=== PATIENT | male | born 1965 | race Caucasian/White ===

== ENCOUNTER 2023-07-06 13:07 | Emergency (ER) | payer OTHER, SELFPAY ==
[2023-07-06 13:14] VITALS: BP 169/107
[2023-07-06 13:55] LABS: % Immature Granulocytes 0.3 % (0-0.5); % Lymphocytes 8.8 % (20.5-51.1); % Monocytes 2.2 % (1.7-9.3); % Neutrophils 88.7 % (42.2-75.2); Absolute Lymphocytes 0.6 10^3/uL (1.2-3.4); Absolute Monocytes 0.1 10^3/uL (0.1-0.6); Absolute Neutrophils 5.6 10^3/uL (1.4-6.5); Hematocrit 48.8 % (39.0-52.0); Hemoglobin 17.8 g/dL (13.0-18.0); Mean Corp Hgb Conc. 36.5 g/dL (33.0-37.0); Mean Corpuscular Hgb 32.5 pg (27.0-31.0); Mean Corpuscular Volume 89.1 fL (80.0-94.0); Mean Platelet Volume 9.7 fL (7.4-10.4); Nucleated Red Blood Cells % 0 % (-); Platelet Count 311 10^3/uL (130-400); Red Blood Cell Count 5.48 10^6/uL (4.70-6.10); Red Cell Dist. Width 12.4 % (11.5-14.5); White Blood Cell Count 6.3 10^3/uL (4.8-10.8)
[2023-07-06 14:17] LABS: ALT (SGPT) 41 U/L (0-50); AST (SGOT) 31 U/L (17-59); Albumin 4.6 g/dl (3.5-5.0); Alkaline Phosphatase 41 U/L (38-126); Blood Urea Nitrogen 15 mg/dl (9-20); Carbon Dioxide 28 mmol/L (22-30); Chloride 100 mmol/L (98-107); Glucose 142 mg/dl (70-99); Potassium 4.6 mmol/L (3.5-5.1); Sodium 139 mmol/L (135-145); Total Bilirubin 0.9 mg/dl (0.2-1.3); Total Protein 8.3 g/dl (6.3-8.2); eGFR > 60.00
--- NOTE | 2023-07-06 14:30 | ED.GENMED ---
History of Present Illness
General
Chief Complaint: Back Pain
Time Seen by Provider: 07/06/23 14:08
Travel History
Have you had any contact with someone who has COVID-19?: No
Do you have any symptoms of coronavirus? Fever > 100 degrees, chills, cough, shortness of breath, sore throat, loss of taste or smell, muscle aches, or headache?: No
History of Present Illness
History of Present Illness:
58-year-old male presents to the emergency department for evaluation of right lower back pain rating to the right groin over the past 2 to 3 days but acutely worse this morning. Pain is worse whenever he attempts to ambulate or bend forward.
Denies any lower extremity paresthesias or loss of urinary continence. No fevers or chills. He does note intermittent epigastric discomfort over the past month but this is not consistent currently. Took ibuprofen this morning without significant
relief of pain.
Past History
Past History
ED Past Medical History: GERD
ED Past Surgical History: None
Social History
Tobacco: Non-smoker
Alcohol: None
Personal: Single
Living: alone
Employment: Employed (self employed)
Family History
Family History: Negative Diabetes or CAD
Review of Systems
Review of Systems
Allergies reviewed?: Yes
All Other Systems: ROS reviewed and negative except as documented in HPI and ROS
Phy Exam
Physical Exam
Physical Exam:
GEN: Well appearing, NAD, WDWN
HEENT: Oral mucosa moist, no scleral icterus
Cardiac: Regular rate
Lung: No respiratory distress, no tachypnea
MSK: No gross deformity or injuries. No reproducible lumbar spine tenderness. Negative straight leg raise test on the right.
Skin: Good color, no pallor or jaundice, no rashes
Neuro: AO x3, moves all extremities freely. Bilateral lower extremity strength is 5 out of 5 in all tineo of flexion and extension and symmetric. Sensation is normal throughout all tineo lower extremities. Patellar reflexes 2+ bilaterally
Psych: Calm, cooperative
Course
Orders/Labs/Results
Orders:
Orders
07/06/23 13:15
Electrocardiogram (*1) Urgent
Reason for Study: Chest Pain
EKG- Treatment ONCE
07/06/23 13:33
Complete Blood Count/With Diff Urgent
Comprehensive Metabolic Panel Urgent
07/06/23 14:32
Acetaminophen [Tylenol] 1,000 mg PO NOW STA
Diazepam [Valium] 5 mg PO NOW STA
Ketorolac [Toradol] 30 mg IM NOW STA
Lidocaine [Lidocaine 4% Patch] 1 patch TOPICAL NOW STA
07/06/23 15:44
CT Abd/pel Without Iv Or Oral Urgent
Comment:
Reason For Exam: R flank pain
07/06/23 17:45
Urinalysis Reflex To Culture Urgent
Date Specimen was Collected: 07/06/23
Time Specimen was Collected: 17:33
Abnormal Lab Results
07/06/23
13:33
MCH 32.5 H pg
(27.0-31.0)
Absolute Lymphs (auto) 0.6 L 10^3/uL
(1.2-3.4)
Neutrophils % 88.7 H %
(42.2-75.2)
Lymphocytes % 8.8 L %
(20.5-51.1)
Glucose 142 H mg/dl
(70-99)
Total Protein 8.3 H g/dl
(6.3-8.2)
07/06/23 13:33
07/06/23 13:33
Vital Signs
Initial and Last Documented VS:
Initial Vital Signs
Temp Pulse Resp BP Pulse Ox
98.3 F 82 18 169/107 98
07/06/23 13:14 07/06/23 13:14 07/06/23 13:14 07/06/23 13:14 07/06/23 13:14
Last Documented Vital Signs
Temp Pulse Resp BP Pulse Ox
98.3 F 87 16 151/88 97
07/06/23 13:14 07/06/23 18:04 07/06/23 18:04 07/06/23 15:42 07/06/23 18:04
MDM/Problems Addressed
MDM/Problems Addressed:
After initial round of medications the patient's pain was not significantly changed, given the radiation from flank to groin we opted to obtain a CT scan to rule out ureterolithiasis. Imaging did show the changes of the bladder wall of uncertain
significance, his urinalysis is bland thus I do not suspect urinary tract infection. I encouraged him to discuss this finding with his primary care physician as he may require urologic follow-up for direct visualization to rule out malignancy
however the lack of hematuria is certainly reassuring against this. Back pain is likely mechanical, no emergent red flag symptoms warranting urgent MRI. Will prescribe steroids and muscle relaxants for supportive care
*Critical Care Note
Total Time (30-74mins, 75-104mins- exclusive of procedures): Not Applicable
ED Attending Note
-
Portions of this chart may have been created with voice recognition software.� Occasional wrong word or��sound alike� substitutions may have occurred due to the inherent limitations of voice recognition software.
Discharge Plan
Departure
Patient Disposition: Home (Routine Discharge)
Date of Disposition: 07/06/23
Time of Disposition: 17:48
Patient with high blood pressure during this ER visit?: No
Discharge Problem:
Lumbar radiculopathy, acute
Instructions: Radiculopathy (DC)
Prescriptions:
New
methylprednisolone [Medrol (Jay)] 4 mg tablets,dose pack
See Rx Instructions .ROUTE .COMPLEX Qty: 21 0RF
Rx Instructions:
orally per package directions
methocarbamol 750 mg tablet
750 - 1,500 mg PO TID PRN (Reason: pain) Qty: 20 0RF
No Action
albuterol sulfate 1 PUFF HFA aerosol inhaler
2 puff inhalation R Q4HPRN PRN (Reason: shortness of breath) Qty: 1 0RF
ibuprofen [Advil] 200 MG tablet
400 mg PO Q4HPRN PRN (Reason: pain, fever)
Nyquil
30 ml PO TIDPRN PRN (Reason: cough,cold symptoms)
famotidine 20 MG tablet
20 mg PO DAILY
ascorbic acid (vitamin C) [Vitamin C] 500 MG tablet
1,000 mg PO BID
cholecalciferol (vitamin D3) 1,000 UNITS tablet
2,000 units PO DAILY
acetaminophen 325 MG tablet
650 mg PO Q4HPRN PRN (Reason: fever >/= 100.4F, CANO,mild pain) 0RF
guaifenesin [Mucus Relief ER] 600 MG tablet extended release 12hr
600 mg PO Q12 0RF
Referrals:
Paresh Werner MD [Family Provider] -
Interventions
Interventions:
*Risk Screen - Suicide Last Done: 07/06/23 13:14
*General Assessment Last Done: 07/06/23 14:43
*Neglect/Abuse Screening Last Done: 07/06/23 13:14
ED- Fall Risk Assessment Last Done: 07/06/23 14:43
*ED COVID-19 Vaccine History Last Done: 07/06/23 13:14
*Nursing Disposition Last Done: 07/06/23 18:04
ED-Musculoskeletal Assessment Last Done: 07/06/23 14:43
Discharge Date and Time
Discharge Date/Time: 07/06/23 18:06
[2023-07-06] MEDS: TYLENOL 1000 MG PO (14:45)
[2023-07-06] MEDS: TORADOL 30 MG IM (14:46)
[2023-07-06] MEDS: LIDOCAINE 4% PATCH 1 PATCH TOPICAL (14:47)
[2023-07-06 15:42] VITALS: BP 151/88
[2023-07-06] MEDS: VALIUM 5 MG PO (16:42)
[2023-07-06 17:53] LABS: Urine Albumin Negative (Neg - Trace); Urine Bilirubin Negative (Negative); Urine Character Clear (Clear); Urine Color Yellow; Urine Glucose Negative (Negative); Urine Ketone Negative (Negative); Urine Leukocyte Negative (Negative); Urine Nitrite Negative (Negative); Urine Occult Blood Negative (Negative); Urine Specific Gravity 1.005 (<1.030); Urine Urobilinogen Negative (Neg - 1+); Urine pH 6.5 (5.0-9.0)
== END 2023-07-06 18:06 | disposition home or self-care (01) ==
LOC: EMR 13:07
PROVIDERS: Emergency Medicine; Physician Assistant; EMERGENCY PHYSICIAN Emergency Medicine; FAMILY PHYSICIAN Family Medicine
DX: M51.16 Intervertebral disc disorders with radiculopathy, lumbar region (principal); K21.9 Gastro-esophageal reflux disease without esophagitis
CPT/HCPCS: 99284; 96372; 74176; 80053; 81003; 85025; 93005

== ENCOUNTER 2025-05-06 23:29 | Emergency (ER) | payer OTHER, SELFPAY ==
[2025-05-06 23:41] VITALS: BP 171/98
--- NOTE | 2025-05-06 23:54 | ED.GENMED ---
History of Present Illness
<Alecia Hester PA-C - Last Filed: 05/07/25 04:07>
General
Chief Complaint: Chest Pain
Source: patient
Exam Limitations: none
Time Seen by Provider: 05/06/25 23:53
Nursing documentation reviewed up to this point in time: agreed with
History of Present Illness
History of Present Illness:
Note:
CHIEF COMPLAINT(S)
Chest pain with possible reflux symptoms.
HISTORY OF PRESENT ILLNESS
The patient is a 60-year-old male with pmh of GERD, renal stones, who presented with complaints of chest pain and epigastric pain that have persisted intermittently over the past few days. He describes the pain as 'light' initially but remarks that
it escalated to severe discomfort earlier in the evening after consumption of Coca-Cola, mashed potatoes, spring beans, and grain muffins. He reports a history of similar symptoms two years prior that lasted about twelve hours without medical
intervention. The current pain is located in the chest, with radiation to both sides of the stomach and described as a 'hardcore pain' for approximately two and a half to three hours.
He attempted self-medication with an acid check pilot believed to contain cimetidine and 500 mg of acetaminophen, which provided some relief. The patient has a history of gastroesophageal reflux disease (GERD) and suspects the current symptoms may be
related. However, he noted increased pain severity upon physical exertion and when lying down. He denies any burning sensation in the throat, shortness of breath, numbness, or tingling at this time.
FAMILY HISTORY
Family cardiac history is unknown as the patient is unsure.
PAST MEDICAL AND SURGICAL HISTORY
The patient has been diagnosed with kidney stones in the past and experiences gastroesophageal reflux disease. He states he had his blood work done recently, noting mild elevation in cholesterol. He has not had his gallbladder removed.
MEDICATIONS
Occasional use of an acid check pilot, believed to contain cimetidine, and acetaminophen for symptomatic relief.
PHYSICAL EXAM
General: Well appearing, in no acute distress.
Skin: Warm, dry.
Head: Normocephalic, atraumatic.
Neck: Supple, trachea midline.
Eyes, Ears, Nose, Mouth and Throat: Oral mucosa moist.
Cardiovascular: Regular rate and rhythm, no murmurs. No tenderness to palpation of the external chest pain. Normal peripheral perfusion, No edema.
Respiratory: Respirations are non-labored. No wheezes, rales, or rhonchi.
Gastrointestinal: Abdomen nondistended, mild tenderness in epigastrium and LUQ noted without significant guarding or rebound.
Back: Normal range of motion, Normal alignment.
Musculoskeletal: Normal range of motion, normal strength.
Neurological: CN II-XII intact. Alert and oriented to person, place, time, and situation, No focal neurological deficit observed.
Psychiatric: Cooperative, appropriate mood & affect.
PROBLEM LIST
Acute:
- Chest pain with suspected reflux component
- Intermittent severe epigastric and chest discomfort
Chronic:
- Gastroesophageal reflux disease (GERD)
- History of kidney stones
PLAN
- Conduct an Electrocardiogram (EKG) to rule out cardiac involvement, troponin.
- Recommend an ultrasound to evaluate gallbladder pathology.
- Administer a Gastrointestinal (GI) cocktail to alleviate symptomatic esophageal discomfort.
- Administer intravenous Pantoprazole (Protonix) to reduce gastric acid secretion.
- Investigate potential causes for pain, including cardiac, gallbladder, and pancreatic issues.
DIFFERENTIAL DIAGNOSIS
The Differential Diagnosis includes, in no particular order and is not limited to:
- Gastroesophageal reflux disease (GERD)
- Cardiac ischemia or myocardial infarction
- Cholecystitis
- Pancreatitis
- Peptic ulcer disease
- Esophageal spasm
- Angina pectoris
- Musculoskeletal chest wall pain
- Gastroesophageal reflux-induced esophagitis
- Biliary colic
CHART REVIEW
Reviewed ER physician documentation from patient seen for lumbar radiculopathy
Reviewed discharge summary from 05/21/21 patient seen for COVID pneumonia
UPDATE
Patient did note improvement with GI cocktail but than symptoms resolved
MDM/DISPOSITION
The patient is a 60-year-old male with pmh of GERD, renal stones, who presented with complaints of chest pain and epigastric pain that have persisted intermittently over the past few days. He describes the pain as 'light' initially but remarks that
it escalated to severe discomfort earlier in the evening after consumption of Coca-Cola, mashed potatoes, spring beans, and grain muffins. He has no cardiac hx. On exam, his vitals are stable, he has no chest discomfort to palpation, heart rrr with
no murmurs. Negative waldron's sign. US shows gallstone at gallbladder neck but no associated fever, wbc count, transaminitis. Lipase normal.
Troponin undetectable, ecg non-ischemic.
CXR no acute disease no pneumothorax.
Suspect GERD/gastritis.
Will trial PPI trial and advise close follow up with GI.
Patient stable for discharge, discussed strict return precautions.
Past History
<Alecia Hester PA-C - Last Filed: 05/07/25 04:07>
Past History
ED Past Medical History: GERD
ED Past Surgical History: None
Social History
Tobacco: Non-smoker
Alcohol: None
Personal: Single
Living: alone
Employment: Employed (self employed)
Family History
Family History: Negative Diabetes or CAD
Review of Systems
<Alecia Hester PA-C - Last Filed: 05/07/25 04:07>
Review of Systems
All Other Systems: ROS reviewed and negative except as documented in HPI and ROS
Phy Exam
<Alecia Hester PA-C - Last Filed: 05/07/25 04:07>
Physical Exam
Physical Exam:
see hpi
Scores
<Alecia Hester PA-C - Last Filed: 05/07/25 04:07>
Heart Score for Chest Pain Patients
STEMI patient?: No
History: Slightly or Non-Suspicious
ECG: Normal
Age: >45 - <65 years
Risk Factors: 1 or 2 Risk Factors
Troponin: </= Normal Limit
Heart Score for Chest Pain Patients: 2
Heart Score Risk: 2.5% MACE over next 6 weeks
Course
Robertlt;Alecia Hester PA-C - Last Filed: 05/07/25 04:07>
Orders/Labs/Results
Orders:
Orders
05/06/25 23:34
EKG [Electrocardiogram (*1)] Urgent
Reason for Study: Chest Pain
EKG- Treatment ONCE
05/07/25 00:16
Mag Hydrox/Al Hydrox/Simeth [Maalox] 30 ml Phenobarb/Hyoscy/Atropine/Scop [] 10 ml Viscous Lidocaine 2% [Xylocaine Viscous Cup] 10 ml PO NOW
Pantoprazole [Protonix IV] 40 mg IV NOW STA
US Abdomen Limited Urgent
Comment:
Reason For Exam: epigastric pain
05/07/25 00:17
CR Chest - 2 Views Urgent
Comment:
Reason For Exam: chest pain
05/07/25 00:20
Complete Blood Count/With Diff Urgent
Comprehensive Metabolic Panel Urgent
Lipase Urgent
Troponin I Urgent
05/07/25 00:25
Mag Hydrox/Al Hydrox/Simeth [Maalox] 30 ml .ROUTE .STK-MED ONE
Phenobarb/Hyoscy/Atropine/Scop [] 10 ml .ROUTE .STK-MED ONE
Viscous Lidocaine 2% [Xylocaine Viscous Cup] 15 ml .ROUTE .STK-MED ONE
05/07/25 02:22
Sucralfate Suspension [Carafate Suspension] 1 gm PO NOW STA
05/07/25 02:49
Acetaminophen 1000MG/100Ml [Ofirmev] 1,000 mg in 100 ml IV ONCE
Acetaminophen IV Indication:: ED Narcotic Naive Pt-ONCE
Abnormal Lab Results
05/07/25
00:20
MCH 31.7 H pg
(27.0-31.0)
Glucose 129 H mg/dl
(70-99)
05/07/25 00:20
05/07/25 00:20
Vital Signs
Initial and Last Documented VS:
Initial Vital Signs
Temp Pulse Resp BP Pulse Ox
97.5 F 66 16 171/98 100
05/06/25 23:41 05/06/25 23:41 05/06/25 23:41 05/06/25 23:41 05/06/25 23:41
Last Documented Vital Signs
Temp Pulse Resp BP Pulse Ox
97.5 F 66 20 153/89 99
05/06/25 23:41 05/07/25 03:27 05/07/25 00:32 05/07/25 03:27 05/07/25 02:45
<Iron Saez MD - Last Filed: 05/07/25 02:44>
Orders/Labs/Results
Orders:
Orders
05/06/25 23:34
EKG [Electrocardiogram (*1)] Urgent
Reason for Study: Chest Pain
EKG- Treatment ONCE
05/07/25 00:16
Mag Hydrox/Al Hydrox/Simeth [Maalox] 30 ml Phenobarb/Hyoscy/Atropine/Scop [] 10 ml Viscous Lidocaine 2% [Xylocaine Viscous Cup] 10 ml PO NOW
Pantoprazole [Protonix IV] 40 mg IV NOW STA
US Abdomen Limited Urgent
Comment:
Reason For Exam: epigastric pain
05/07/25 00:17
CR Chest - 2 Views Urgent
Comment:
Reason For Exam: chest pain
05/07/25 00:20
Complete Blood Count/With Diff Urgent
Comprehensive Metabolic Panel Urgent
Lipase Urgent
Troponin I Urgent
05/07/25 00:25
Mag Hydrox/Al Hydrox/Simeth [Maalox] 30 ml .ROUTE .STK-MED ONE
Phenobarb/Hyoscy/Atropine/Scop [] 10 ml .ROUTE .STK-MED ONE
Viscous Lidocaine 2% [Xylocaine Viscous Cup] 15 ml .ROUTE .STK-MED ONE
05/07/25 02:22
Sucralfate Suspension [Carafate Suspension] 1 gm PO NOW STA
05/07/25 02:49
Acetaminophen 1000MG/100Ml [Ofirmev] 1,000 mg in 100 ml IV ONCE
Acetaminophen IV Indication:: ED Narcotic Naive Pt-ONCE
Abnormal Lab Results
05/07/25
00:20
MCH 31.7 H pg
(27.0-31.0)
Glucose 129 H mg/dl
(70-99)
05/07/25 00:20
05/07/25 00:20
Vital Signs
Initial and Last Documented VS:
Initial Vital Signs
Temp Pulse Resp BP Pulse Ox
97.5 F 66 16 171/98 100
05/06/25 23:41 05/06/25 23:41 05/06/25 23:41 05/06/25 23:41 05/06/25 23:41
Last Documented Vital Signs
Temp Pulse Resp BP Pulse Ox
97.5 F 66 20 153/89 99
05/06/25 23:41 05/07/25 03:27 05/07/25 00:32 05/07/25 03:27 05/07/25 02:45
ernie;Alecia Hester PA-C - Last Filed: 05/07/25 04:07>
*Pulse Oximetry
SaO2: 100
Oxygen Mode of Delivery: Room air
Patient hypoxic: no
*Critical Care Note
Total Time (30-74mins, 75-104mins- exclusive of procedures): Not Applicable
ED Attending Note
<Alecia Hester PA-C - Last Filed: 05/07/25 04:07>
-
Portions of this chart may have been created with voice recognition software.� Occasional wrong word or��sound alike� substitutions may have occurred due to the inherent limitations of voice recognition software.
<Iron Saez MD - Last Filed: 05/07/25 02:44>
ED Attending Note
Patient seen and examined by attending physician: Yes
ED Attending Note:
I have seen and evaluated the patient with a [id number] encounter. I have spoken to the advance practicer provider and involved in the medical history, the physical exam, medical decision making.
Evaluation and management service: agree unless noted differently below.
Results interpretation: agree unless noted differently below.
Focused HPI: 60-year-old male with history as noted presents for evaluation of abdominal pain/chest pain. Patient reports he had some mild chest burning over the past few days and then after eating this evening had acute worsening of symptoms
mainly in the left upper quadrant. Associated with mild nausea but no vomiting. More severe abdominal pain subsided still has some mild heartburn. He says he has had a few episodes in the past year that are similar.
Physical exam: Awake and alert, not in distress. Hypertensive but otherwise normal vitals. Abdomen soft, nontender to deep palpation.
Medical Decision Makin-year-old male presents for evaluation of chest/left upper quadrant abdominal pain. Mild symptoms for a few days acutely worse after eating although severe symptoms have subsided by my assessment (after GI cocktail here).
He had labs here including a CBC and a CMP, lipase which showed no clinically significant abnormalities. EKG shows sinus rhythm with nondetectable troponin�sufficient to rule out acute DC in the setting of symptoms for days. He did have a chest
x-ray which shows no acute abnormality on my independent review. Upper abdominal ultrasound showed 2 cm gallstone but no signs of cholecystitis clinically without fever, leukocytosis or tenderness in the upper abdomen. Overall although gallstone
noted on ultrasound, clinically I suspect his symptoms are related to GERD/gastritis with gallstone being incidental today. I spoke to the patient at length about results today and the possibility that pain was referred from the gallbladder versus
more related to stomach. Spoke about adjusting his diet, can start on PPI and Carafate. Refer to GI for outpatient follow-up. I spoke to him about signs and symptoms of biliary pathology. Spoke in detail about return precautions. All questions
answered.
Discharge Plan
Departure
Patient Disposition: Home (Routine Discharge)
Date of Disposition: 05/07/25
Time of Disposition: 03:13
Patient with high blood pressure during this ER visit?: Yes
Condition: Good
Discharge Problem:
GERD (gastroesophageal reflux disease), Gastritis
Instructions: Acid Reflux and GERD in Adults (DC), BLOOD PRESSURE
Prescriptions:
New
pantoprazole [Protonix] 20 mg tablet,delayed release (DR/EC)
20 mg PO DAILY 14 Days Qty: 14 0RF
sucralfate 100 mg/mL suspension
1 g PO TID Qty: 420 0RF
No Action
albuterol sulfate 1 PUFF HFA aerosol inhaler
2 puff inhalation R Q4HPRN PRN (Reason: shortness of breath) Qty: 1 0RF
ibuprofen [Advil] 200 MG tablet
400 mg PO Q4HPRN PRN (Reason: pain, fever)
Nyquil
30 ml PO TIDPRN PRN (Reason: cough,cold symptoms)
famotidine 20 MG tablet
20 mg PO DAILY
ascorbic acid (vitamin C) [Vitamin C] 500 MG tablet
1,000 mg PO BID
cholecalciferol (vitamin D3) 1,000 UNITS tablet
2,000 units PO DAILY
acetaminophen 325 MG tablet
650 mg PO Q4HPRN PRN (Reason: fever >/= 100.4F, CANO,mild pain) 0RF
guaifenesin [Mucus Relief ER] 600 MG tablet extended release 12hr
600 mg PO Q12 0RF
methylprednisolone [Medrol (Jay)] 4 mg tablets,dose pack
See Rx Instructions .ROUTE .COMPLEX Qty: 21 0RF
Rx Instructions:
orally per package directions
methocarbamol 750 mg tablet
750 - 1,500 mg PO TID PRN (Reason: pain) Qty: 20 0RF
Referrals:
Paresh Werner MD [Family Provider, Family Practice]
Liz Viera MD [Active, Gastroenterology] - Call in 1-3 days for appt
Activity Restrictions/Additional Instructions:
Please call attached number to establish care with GI.
PLEASE RETURN TO THE ER SHOULD YOU DEVELOP RIGHT UPPER QUADRANT PAIN, FEVERS OR CHILLS, INTRACTABLE NAUSEA OR VOMITING, YELLOWING OF THE EYES OR SKIN, OR ANY OTHER SIGNS OR SYMPTOMS WORRISOME TO YOU.
Interventions
Interventions:
*Risk Screen - Suicide Last Done: 05/06/25 23:41
*General Assessment Last Done: 05/06/25 23:41
*Neglect/Abuse Screening Last Done: 05/06/25 23:41
*ED- Fall Risk Assessment Last Done: 05/06/25 23:41
*ED COVID-19 Vaccine History Last Done: 05/06/25 23:41
*ED Influenza Vaccine History Last Done: 05/06/25 23:41
*Nursing Disposition Last Done: 05/07/25 03:30
ED- Cardiac Assessment Last Done: 05/07/25 00:07
Discharge Date and Time
Discharge Date/Time: 05/07/25 03:30
Print Language: PORTUGUESE
[2025-05-07] MEDS: MAALOX 50 PO (00:30)
[2025-05-07 00:32] VITALS: BP 157/90
[2025-05-07 00:53] LABS: ALT (SGPT) 26 U/L (0-50); AST (SGOT) 22 U/L (17-59); Albumin 4.3 g/dl (3.5-5.0); Alkaline Phosphatase 43 U/L (38-126); Blood Urea Nitrogen 13 mg/dl (9-20); Calcium 9.3 mg/dl (8.4-10.2); Carbon Dioxide 25 mmol/L (22-30); Chloride 105 mmol/L (98-107); Glucose 129 mg/dl (70-99); Lipase 151 U/L (23-300); Potassium 4.1 mmol/L (3.5-5.1); Sodium 136 mmol/L (135-145); Total Protein 7.4 g/dl (6.3-8.2); eGFR > 60.00
[2025-05-07 01:00] LABS: Hematocrit 43.2 % (39.0-52.0); Hemoglobin 15.5 g/dL (13.0-18.0); Mean Corp Hgb Conc. 35.9 g/dL (33.0-37.0); Mean Corpuscular Volume 88.3 fL (80.0-94.0); Nucleated Red Blood Cells % 0 % (-); Platelet Count 257 10^3/uL (130-400); Red Cell Dist. Width 12.1 % (11.5-14.5)
[2025-05-07 01:04] LABS: Troponin I < 0.012 ng/ml
[2025-05-07] MEDS: PROTONIX IV 40 MG IV (01:29)
[2025-05-07 01:42] VITALS: BP 163/102
[2025-05-07 02:00] VITALS: BP 146/83
[2025-05-07] MEDS: CARAFATE SUSPENSION 1 GM PO (02:47)
[2025-05-07] MEDS: OFIRMEV 100 IV (02:52)
[2025-05-07 03:00] VITALS: BP 173/91
[2025-05-07 03:27] VITALS: BP 153/89
== END 2025-05-07 03:30 | disposition home or self-care (01) ==
LOC: EMR 23:29
PROVIDERS: Physician Assistant; EMERGENCY PHYSICIAN Emergency Medicine; FAMILY PHYSICIAN Family Medicine
DX: K29.70 Gastritis, unspecified, without bleeding (principal); K21.9 Gastro-esophageal reflux disease without esophagitis; K80.20 Calculus of gallbladder without cholecystitis without obstruction; Z87.442 Personal history of urinary calculi
CPT/HCPCS: 99285; 96374; 96375; 71046; 76705; 80053; 83690; 84484; 85025; 93005